=== PATIENT | male | born 1990 | race African-American/Black ===

== ENCOUNTER 2019-06-24 13:37 | Emergency (ER) | payer MEDICAID, MEDICARE, OTHER ==
[~2019-06-24] VITALS: Ht 175.3 cm; Wt 73.9 kg
--- NOTE | 2019-06-24 13:45 | NUR ---
BIB RA 62, C/O SOB,WEAKNESS, NOT IMPROVING WITH CLARITIN PRESCRIBED FROM HIM "MULTIPLE MD VISITS" pt awake alert, -sob, nad noted, vss, pending md saxena
[2019-06-24] MEDS ORDERED: ACETAMINOPHEN ES 500 MG TABLET PO ONE (14:00)
[2019-06-24] MEDS ORDERED: IV NS 0.9% 1,000 ML BAG IV ONE (14:00)
[2019-06-24 14:12] LABS: BASOPHILS % (AUTO) 1.2 % (0.0-2.0); EOSINOPHILS % (AUTO) 0.3 % (0.0-6.0); HEMATOCRIT 42 % (39-51); HEMOGLOBIN 13.9 g/dL (13.5-17.5); LYMPHOCYTES % (AUTO) 25.2 % (20.0-44.0); MEAN CORPUSCULAR HGB CONC 33 g/dl (31.0-36.0); MEAN CORPUSCULAR VOLUME 87 fL (80-96); MONOCYTES # (AUTO) 0.3 /CMM (0.1-1.30); NEUTROPHILS # (AUTO) 2.7 /CMM (1.8-8.9); NEUTROPHILS % (AUTO) 66.3 % (43.0-81.0); PLATELET COUNT (AUTO) 211 /CMM (150-450); RED BLOOD CELL COUNT(AUTO) 4.77 MIL/uL (4.5-6.0)
[2019-06-24 14:19] LABS: CALCIUM, SERUM 8.5 mg/dL (8.5-10.1); CREATININE 0.9 mg/dL (0.6-1.3)
[2019-06-24] MEDS ORDERED: ACETAMINOPHEN ES 500 MG TABLET ONE (14:23)
[2019-06-24 14:30] VITALS: BP 110/75
--- NOTE | 2019-06-24 14:46 | NUR ---
Patient given written and verbal discharge instructions. Patient verbalizes understanding of instructions. Patient is ambulatory with steady gait. Patient given list of available shelters in surrounding area.
== END 2019-06-24 14:55 | disposition home or self-care (01) ==
LOC: ER 13:38
DX: R53.1 Weakness (principal); Z59.0 Homelessness
CPT/HCPCS: 36415; 71045; 80048; 85025; 93005; 99285; J7030

== ENCOUNTER 2021-04-15 20:41 | Emergency (ER) | payer MEDICARE, OTHER ==
[~2021-04-15] VITALS: Ht 175.3 cm; Wt 74.8 kg
--- NOTE | 2021-04-15 23:30 | NUR ---
PATIENT BIBRA FROM THE STREETS C/O S/I WITH PLAN TO RUN INTO TRAFFIC, SEEKING VOLUNTARY ADMISSION TO [facility]. PATIENT IS A/O X 4, RR EVEN AND UNLABORED, NO SOB NOTED. PATIENT CONNECTED TO CARDIAC AND POX MONITOR.
[2021-04-16 01:00] VITALS: BP 124/64
[2021-04-16 01:43] LABS: BASOPHILS % (AUTO) 0.4 % (0.0-2.0); EOSINOPHILS % (AUTO) 1.3 % (0.0-6.0); HEMATOCRIT 37 % (39-51); HEMOGLOBIN 12.8 g/dL (13.5-17.5); LYMPHOCYTES # (AUTO) 2.5 K/uL (0.8-4.8); LYMPHOCYTES % (AUTO) 41.9 % (20.0-44.0); MEAN CORPUSCULAR HGB CONC 34 g/dl (31.0-36.0); MEAN CORPUSCULAR VOLUME 88 fL (80-96); MONOCYTES # (AUTO) 0.5 K/uL (0.1-1.30); MONOCYTES % (AUTO) 7.8 % (2.0-12.0); NEUTROPHILS # (AUTO) 2.9 K/uL (1.8-8.9); NEUTROPHILS % (AUTO) 48.6 % (43.0-81.0); PLATELET COUNT (AUTO) 347 K/uL (150-450); RED BLOOD CELL COUNT(AUTO) 4.24 MIL/uL (4.5-6.0)
[2021-04-16 02:07] LABS: CALCIUM, SERUM 7.8 mg/dL (8.5-10.1); CARBON DIOXIDE 32 mmol/L (21-32); CHLORIDE 105 mmol/L (98-107); GLUCOSE 103 mg/dL (74-106); POTASSIUM 3.9 mmol/L (3.5-5.1); SODIUM SERUM 144 mmol/L (136-145); UREA NITROGEN, BLOOD 10 mg/dL (7-18)
[2021-04-16 02:15] LABS: ALANINE AMINOTRANSFERASE 25 U/L (12-78); ALBUMIN 3.2 g/dL (3.4-5.0); ALKALINE PHOSPHATASE 86 U/L (46-116); BILIRUBIN,TOTAL 0.3 mg/dL (0.2-1.0)
[2021-04-16 02:18] LABS: ALCOHOL, BLOOD < 3 mg/dL (0-0)
[2021-04-16 02:59] LABS: ACETAMINOPHEN < 2 ug/ml (10-30); ASPARTATE AMINOTRANSFERASE 21 U/L (15-37); TOTAL PROTEIN, SERUM 6.3 g/dL (6.4-8.2)
--- NOTE | 2021-04-16 03:57 | NUR ---
COVID SWAB COLLECTED SENT TO LAB
[2021-04-16 04:08] LABS: BILIRUBIN,URINE NEGATIVE (NEGATIVE); COLOR,URINE YELLOW (YELLOW); LEUKOCYTE ESTERASE ,URINE SMALL (NEGATIVE); NITRITE, URINE NEGATIVE (NEGATIVE); PROTEIN,URINE NEGATIVE (NEGATIVE); UGLUCOSE NEGATIVE (NEGATIVE); UROBILINOGEN,URINE 0.2 EU/dL (0.2)
[2021-04-16 04:14] LABS: BACTERIA,URINE Few /HPF (None Seen); MUCUS,URINE Few /LPF (None Seen); RBC,URINE 0-2 /HPF (0-2); SQUAMOUS EPITHELIAL CELL,UR Few /HPF (None Seen); WBC,URINE 21-50 /HPF (0-3)
--- NOTE | 2021-04-16 09:45 | NUR ---
Pt. is accepted to [facility].
--- NOTE | 2021-04-16 11:15 | NUR ---
TRANSPORT HERE TO PICKUP PATIENT.
--- NOTE | 2021-04-16 11:20 | NUR ---
Patient discharged to [facility] in stable condition. Written and verbal after care instructions given. Patient verbalizes understanding of instruction.PT D/C TO [facility]. PT ambulatory with a steady gait. VSS. ALL BELONGINGS WITH PT.
== END 2021-04-16 11:20 ==
LOC: ER 21:20
DX: R45.851 Suicidal ideations (principal); Z20.822 Contact with and (suspected) exposure to COVID-19; Z59.01 Sheltered homelessness; Z88.0 Allergy status to penicillin; F12.90 Cannabis use, unspecified, uncomplicated
CPT/HCPCS: 36415; 80048; 80076; 80143; 80307; 80320; 81001; 85025; 87086; 87426; 99285; C9803; G0480

== ENCOUNTER 2021-04-18 03:02 | Emergency (ER) | payer MEDICARE, OTHER ==
[~2021-04-18] VITALS: Ht 175.3 cm; Wt 74.8 kg
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
--- NOTE | 2021-04-18 03:45 | NUR ---
URINE COLLECTED SENT TO LAB
[2021-04-18] MEDS ORDERED: IBUPROFEN 400 MG TABLET ONE (04:00)
[2021-04-18] MEDS ORDERED: IBUPROFEN 400 MG TABLET PO ONE (04:00)
[2021-04-18 04:43] LABS: BASOPHILS % (AUTO) 0.4 % (0.0-2.0); EOSINOPHILS % (AUTO) 1.3 % (0.0-6.0); HEMATOCRIT 40 % (39-51); HEMOGLOBIN 13.1 g/dL (13.5-17.5); LYMPHOCYTES # (AUTO) 1.9 K/uL (0.8-4.8); LYMPHOCYTES % (AUTO) 28.7 % (20.0-44.0); MEAN CORPUSCULAR HGB CONC 33 g/dl (31.0-36.0); MEAN CORPUSCULAR VOLUME 88 fL (80-96); MONOCYTES # (AUTO) 0.5 K/uL (0.1-1.30); MONOCYTES % (AUTO) 7.3 % (2.0-12.0); NEUTROPHILS # (AUTO) 4.2 K/uL (1.8-8.9); NEUTROPHILS % (AUTO) 62.3 % (43.0-81.0); PLATELET COUNT (AUTO) 304 K/uL (150-450); RED BLOOD CELL COUNT(AUTO) 4.54 MIL/uL (4.5-6.0); WHITE BLOOD COUNT (AUTO) 6.8 K/uL (4.3-11.0)
[2021-04-18 04:53] LABS: CALCIUM, SERUM 8.7 mg/dL (8.5-10.1); CARBON DIOXIDE 33 mmol/L (21-32); CHLORIDE 102 mmol/L (98-107); GLUCOSE 106 mg/dL (74-106); POTASSIUM 3.9 mmol/L (3.5-5.1); SODIUM SERUM 141 mmol/L (136-145); UREA NITROGEN, BLOOD 6 mg/dL (7-18)
--- NOTE | 2021-04-18 06:24 | NUR ---
CALLED UMA AT [facility] TO SEE IF THE PT CAN GO BACK TO [facility]. AWAITING FOR HER CALL BACK
[2021-04-18] MEDS ORDERED: IBUP-1957 PO (06:28)
--- NOTE | 2021-04-18 06:30 | NUR ---
GOT A CALL FROM [facility]. JEAN-PIERRE RODRIGUEZ ACCEPTING THE PT.
--- NOTE | 2021-04-18 06:31 | NUR ---
CALLED BENJI AT [facility] , REQUESTING RAPID COVID TEST AND THEN PT IS OK TO GO TO [facility]
--- NOTE | 2021-04-18 08:07 | NUR ---
COVID SWAB DONE AND SENT TO LAB
--- NOTE | 2021-04-18 10:26 | NUR ---
CALLED LAB TO FOLLOW UP COVID RESULT PER CLS HE IS TOO BUSY TO RUN THE TEST.
[2021-04-18] MEDS ORDERED: IBUPROFEN 600 MG TABLET ONE (11:33)
--- NOTE | 2021-04-18 11:46 | NUR ---
CALLED [facility]. ETA OF 20MINS.
[2021-04-18 12:00] VITALS: BP 120/61
[2021-04-18] MEDS ORDERED: IBUPROFEN 600 MG TABLET PO ONE (12:00)
--- NOTE | 2021-04-18 12:12 | NUR ---
REPORT GIVEN TO BEATRIZ RN AT [facility]. GOING TO UNIT II AWAITING TRANSPORT.
--- NOTE | 2021-04-18 12:21 | NUR ---
PICKED UP BY [facility] IN STABLE CONDITION
--- NOTE | 2021-04-18 12:26 | NUR ---
Patient discharged to [facility] stable condition. Written and verbal after care instructions given. Patient verbalizes understanding of instruction. DC VIA RITIKA VIA [facility] EMT
== END 2021-04-18 12:26 ==
LOC: ER 03:09
DX: I31.9 Disease of pericardium, unspecified (principal); Z20.822 Contact with and (suspected) exposure to COVID-19; R44.2 Other hallucinations; Z59.01 Sheltered homelessness; Z88.0 Allergy status to penicillin
CPT/HCPCS: 36415; 71045-TC; 80048-TC; 84484-TC; 85025-TC; C9803

== ENCOUNTER 2021-07-26 14:55 | Emergency (ER) | payer MEDICARE, OTHER ==
[~2021-07-26] VITALS: Ht 175.3 cm; Wt 82.1 kg
[2021-07-26 16:01] LABS: BASOPHILS % (AUTO) 0.8 % (0.0-2.0); EOSINOPHILS % (AUTO) 0.7 % (0.0-6.0); HEMATOCRIT 38 % (39-51); HEMOGLOBIN 12.7 g/dL (13.5-17.5); LYMPHOCYTES # (AUTO) 1.6 K/uL (0.8-4.8); LYMPHOCYTES % (AUTO) 26.6 % (20.0-44.0); MEAN CORPUSCULAR HGB CONC 33 g/dl (31.0-36.0); MEAN CORPUSCULAR VOLUME 86 fL (80-96); MONOCYTES # (AUTO) 0.5 K/uL (0.1-1.30); MONOCYTES % (AUTO) 8.5 % (2.0-12.0); NEUTROPHILS # (AUTO) 3.7 K/uL (1.8-8.9); NEUTROPHILS % (AUTO) 63.4 % (43.0-81.0); PLATELET COUNT (AUTO) 244 K/uL (150-450); RED BLOOD CELL COUNT(AUTO) 4.45 MIL/uL (4.5-6.0); WHITE BLOOD COUNT (AUTO) 5.9 K/uL (4.3-11.0)
[2021-07-26] MEDS ORDERED: IBUPROFEN 600 MG TABLET ONE (16:03)
[2021-07-26 16:19] LABS: BILIRUBIN,URINE NEGATIVE (NEGATIVE); COLOR,URINE YELLOW (YELLOW); LEUKOCYTE ESTERASE ,URINE NEGATIVE (NEGATIVE); NITRITE, URINE NEGATIVE (NEGATIVE); PROTEIN,URINE NEGATIVE (NEGATIVE); UGLUCOSE NEGATIVE (NEGATIVE); UROBILINOGEN,URINE 0.2 EU/dL (0.2)
[2021-07-26] MEDS ORDERED: IBUPROFEN 600 MG TABLET PO ONE (16:30)
[2021-07-26 16:41] LABS: RBC,URINE 0-2 /HPF (0-2)
[2021-07-26 16:42] LABS: BACTERIA,URINE None seen /HPF (None Seen); CALCIUM OXALATE CRYSTALS,UR Few /HPF (None Seen); SQUAMOUS EPITHELIAL CELL,UR None Seen /HPF (None Seen); WBC,URINE NONE SEEN /HPF (0-3)
[2021-07-26 17:17] LABS: CALCIUM, SERUM 8.6 mg/dL (8.5-10.1); CARBON DIOXIDE 28 mmol/L (21-32); CHLORIDE 104 mmol/L (98-107); CREATININE 0.9 mg/dL (0.6-1.3); GLUCOSE 82 mg/dL (74-106); POTASSIUM 3.8 mmol/L (3.5-5.1); SODIUM SERUM 139 mmol/L (136-145); UREA NITROGEN, BLOOD 9 mg/dL (7-18)
[2021-07-26 17:23] LABS: ALANINE AMINOTRANSFERASE 42 U/L (12-78); ALBUMIN 3.6 g/dL (3.4-5.0); ALCOHOL, BLOOD < 3 mg/dL (0-0); ALKALINE PHOSPHATASE 93 U/L (46-116); ASPARTATE AMINOTRANSFERASE 43 U/L (15-37); BILIRUBIN,TOTAL 0.2 mg/dL (0.2-1.0); TOTAL PROTEIN, SERUM 6.8 g/dL (6.4-8.2)
[2021-07-26 17:24] LABS: ACETAMINOPHEN < 2 ug/ml (10-30)
[2021-07-26] MEDS ORDERED: LORAZEPAM 1 MG TABLET PO ONE (18:00)
[2021-07-26] MEDS ORDERED: DIPHENHYDRAMINE HCL 12.5 MG/5 ML UDC PO ONE (18:00)
[2021-07-26] MEDS ORDERED: ACETAMINOPHEN 325 MG TABLET PO ONE (18:00)
[2021-07-26] MEDS ORDERED: LORAZEPAM 1 MG TABLET ONE (18:24)
[2021-07-26] MEDS ORDERED: diphenhydrAMINE HCL ELIX 25 MG/10 ML UDC ONE (18:24)
[2021-07-26] MEDS ORDERED: ACETAMINOPHEN 325 MG TABLET ONE (18:25)
[2021-07-27] MEDS ORDERED: diphenhydrAMINE HCL 25 MG CAPSULE ONE (05:37)
[2021-07-27] MEDS ORDERED: diphenhydrAMINE HCL ELIX 25 MG/10 ML UDC ONE (05:38)
[2021-07-27] MEDS ORDERED: DIPHENHYDRAMINE HCL 12.5 MG/5 ML UDC PO ONE (06:00)
[2021-07-27] MEDS ORDERED: ACETAMINOPHEN 325 MG TABLET ONE (11:40)
[2021-07-27] MEDS ORDERED: ACETAMINOPHEN 325 MG TABLET PO ONE (12:00)
[2021-07-27 13:05] VITALS: BP 120/62
== END 2021-07-27 13:05 | disposition home or self-care (01) ==
LOC: ER 15:02
DX: R45.851 Suicidal ideations (principal); S00.81XA Abrasion of other part of head, initial encounter; Y33.XXXA Other specified events, undetermined intent, initial encounter; Y93.89 Activity, other specified; Y92.89 Other specified places as the place of occurrence of the external cause; Z59.00 Homelessness unspecified; F12.10 Cannabis abuse, uncomplicated; Z20.822 Contact with and (suspected) exposure to COVID-19
CPT/HCPCS: 36415; 80048; 80076; 80143; 80307; 80320; 81001; 85025; 87426; 99285; A6403; Q0163 ×4; C9803; G0480

== ENCOUNTER 2021-12-04 09:36 | Emergency (ER) | payer MEDICAID, MEDICARE, OTHER ==
[~2021-12-04] VITALS: Ht 175.3 cm; Wt 94.8 kg
[2021-12-04 09:47] VITALS: BP 115/70
[2021-12-04] MEDS ORDERED: CYCLOBENZAPRINE 10 MG TABLET ONE (10:12)
[2021-12-04] MEDS ORDERED: FAMOTIDINE (20 MG) 20 MG TABLET ONE (10:12)
[2021-12-04] MEDS ORDERED: MAG HYDROX/AL HYDROX/SIMETH 30 ML UDC ONE (10:12)
[2021-12-04] MEDS ORDERED: ONDANSETRON 4 MG TAB.RAPDIS ONE (10:13)
[2021-12-04] MEDS ORDERED: FAMOTIDINE (20 MG) 20 MG TABLET PO ONE (10:30)
[2021-12-04] MEDS ORDERED: CYCLOBENZAPRINE 10 MG TABLET PO ONE (10:30)
[2021-12-04] MEDS ORDERED: ONDANSETRON 4 MG TAB.RAPDIS SL ONE (10:30)
[2021-12-04] MEDS ORDERED: MAG HYDROX/AL HYDROX/SIMETH 30 ML UDC PO ONE (10:30)
[2021-12-04] MEDS ORDERED: ONDA4TAB5 PO (10:43)
[2021-12-04] MEDS ORDERED: NAPR-1164 PO (10:43)
--- NOTE | 2021-12-04 10:51 | NUR ---
Patient discharged to home in stable condition. Written and verbal after care instructions given. Patient verbalizes understanding of instruction.
== END 2021-12-04 10:51 | disposition home or self-care (01) ==
LOC: ER 09:37
DX: M62.838 Other muscle spasm (principal); K29.70 Gastritis, unspecified, without bleeding; Z88.0 Allergy status to penicillin; Z59.00 Homelessness unspecified; Z60.2 Problems related to living alone
CPT/HCPCS: 99284; Q0162

== ENCOUNTER 2021-12-26 09:05 | Emergency (ER) | payer MEDICAID, MEDICARE, OTHER ==
[~2021-12-26] VITALS: Ht 175.3 cm; Wt 94.8 kg
[~2021-12-26 09:05] MED LIST: NAPR-1164 PO; ONDA4TAB5 PO
[2021-12-26] MEDS ORDERED: CEFTRIAXONE 1 G in IV D5W 50 ML IV ONE (10:00)
[2021-12-26] MEDS ORDERED: LIDOCAINE 1% INJ 50 ML MDV IJ ONE ×2 (10:00→11:18)
[2021-12-26] MEDS ORDERED: VANCOMYCIN 1 GM in IV D5W 250 ML IV ONE (10:00)
--- NOTE | 2021-12-26 10:20 | NUR ---
COVID SWAB DONE AND SENT TO LAB
[2021-12-26 10:23] LABS: BASOPHILS % (AUTO) 0.4 % (0.0-2.0); EOSINOPHILS % (AUTO) 0.4 % (0.0-6.0); HEMATOCRIT 41 % (39-51); HEMOGLOBIN 13.4 g/dL (13.5-17.5); LYMPHOCYTES # (AUTO) 1.3 K/uL (0.8-4.8); MEAN CORPUSCULAR HGB CONC 33 g/dl (31.0-36.0); MEAN CORPUSCULAR VOLUME 84 fL (80-96); MONOCYTES # (AUTO) 0.8 K/uL (0.1-1.30); MONOCYTES % (AUTO) 8.6 % (2.0-12.0); NEUTROPHILS # (AUTO) 7.5 K/uL (1.8-8.9); NEUTROPHILS % (AUTO) 77.6 % (43.0-81.0); PLATELET COUNT (AUTO) 346 K/uL (150-450); RED BLOOD CELL COUNT(AUTO) 4.83 MIL/uL (4.5-6.0); WHITE BLOOD COUNT (AUTO) 9.7 K/uL (4.3-11.0)
[2021-12-26 10:44] LABS: CALCIUM, SERUM 9.4 mg/dL (8.5-10.1); POTASSIUM 3.4 mmol/L (3.5-5.1)
[2021-12-26] MEDS ORDERED: ONDANSETRON HCL/PF 4 MG/2 ML VIAL IV ONE (12:30)
[2021-12-26] MEDS ORDERED: MORPHINE SULFATE INJ 2 MG/ML DISP.SYRIN IV ONE (12:30)
[2021-12-26] MEDS ORDERED: MORPHINE SULFATE INJ 4 MG/ML DISP.SYRIN ONE (12:32)
[2021-12-26] MEDS ORDERED: ONDANSETRON HCL/PF 4 MG/2 ML VIAL ONE (12:32)
--- NOTE | 2021-12-26 13:11 | NUR ---
CALLED [facility] [phone] NO HAND SPECIALIST PER CHERRY.
--- NOTE | 2021-12-26 13:57 | NUR ---
CALLED [facility] [phone] THOM. CURRENTLY AT [facility] IN ED. WILL CHECK WITH CONSTRUCTION MANAGEMENT ASSISTANT HAND SPECIALIST FOR ACCEPTANCE. FAXING FACE SHEET AND CLINICALS TO [phone]
[2021-12-26] MEDS ORDERED: LET SOLN TOPICAL 8 ML UDC TP ONE ×2 (14:00→15:49)
--- NOTE | 2021-12-26 15:42 | NUR ---
CALLED [facility] [phone] KIT. WILL TAKE INFO. FAX [phone].
--- NOTE | 2021-12-26 16:13 | NUR ---
[facility] [phone] KACEY ASKED FOR FACE SHEET TO BE FAXED TO [phone]
--- NOTE | 2021-12-26 16:47 | NUR ---
AVNI CALLED FROM [facility] CASE DECLINED SINCE IT CAN BE CONDUCTED AN OUTPATIENT TREATMENT.
--- NOTE | 2021-12-26 18:10 | NUR ---
DR BUTTERFIELD AT BEDSIDE FOR RE-EVAL
[2021-12-26] MEDS ORDERED: HYDR-4209 PO (18:27)
[2021-12-26] MEDS ORDERED: SULF1TAB48 PO (18:27)
[2021-12-26] MEDS ORDERED: CLIN300C12 PO (18:27)
[2021-12-26] MEDS ORDERED: HYDROCODONE/APAP 5/325MG TABLET PO ONE (18:30)
--- NOTE | 2021-12-26 18:44 | NUR ---
IV removed. Catheter intact and site benign. Pressure and 4x4 applied to site. No bleeding noted.Patient discharged to home in stable condition. Written and verbal after care instructions given. Patient verbalizes understanding of instruction.
[2021-12-26] MEDS ORDERED: HYDROCODONE/APAP 5/325MG TABLET ONE (18:45)
[2021-12-26 18:52] VITALS: BP 130/67
== END 2021-12-26 18:54 | disposition home or self-care (01) ==
LOC: ER 09:07
DX: S60.311A Abrasion of right thumb, initial encounter (principal); L03.011 Cellulitis of right finger; X58.XXXA Exposure to other specified factors, initial encounter; Y92.89 Other specified places as the place of occurrence of the external cause; M65.9 Synovitis and tenosynovitis, unspecified; Z59.00 Homelessness unspecified; Z88.0 Allergy status to penicillin; Z20.822 Contact with and (suspected) exposure to COVID-19; F19.10 Other psychoactive substance abuse, uncomplicated; D64.9 Anemia, unspecified
CPT/HCPCS: 26011; 99285; 87426; 73140; 85025; 80048; 87040 ×2; 83605; 36415; 96365; 96375; 96368; 93005; J3490; J2270; J0696; J3370; J2405; J7060; A6403; C9803

== ENCOUNTER 2022-01-25 19:20 | Emergency (ER) | payer MEDICAID, MEDICARE, OTHER ==
[~2022-01-25] VITALS: Ht 175.3 cm; Wt 81.6 kg
[~2022-01-25 19:20] MED LIST changes: +CLIN300C12 PO; +HYDR-4209 PO; -NAPR-1164 PO; -ONDA4TAB5 PO; +SULF1TAB48 PO
--- NOTE | 2022-01-25 20:46 | NUR ---
BIBS FOR S/I WITH PLAN TO INJECT HIMSELF. SEEKING VOLUNTARY ADMISSION TO [facility]. -HI -AUDITORY/VISUAL HALLUCINATIONS. PT AWAKE AND ALERT X4 BREATHING UNLABORED. CHANGED INTO GOWN AND WANDED BY SECURITY. SAFETY MEASURES IN PLACE.
[2022-01-25 20:48] LABS: BASOPHILS % (AUTO) 0.5 % (0.0-2.0); EOSINOPHILS % (AUTO) 1.9 % (0.0-6.0); HEMATOCRIT 37 % (39-51); HEMOGLOBIN 12.3 g/dL (13.5-17.5); LYMPHOCYTES # (AUTO) 2.4 K/uL (0.8-4.8); LYMPHOCYTES % (AUTO) 39.9 % (20.0-44.0); MEAN CORPUSCULAR HGB CONC 34 g/dl (31.0-36.0); MEAN CORPUSCULAR VOLUME 85 fL (80-96); MONOCYTES # (AUTO) 0.5 K/uL (0.1-1.30); MONOCYTES % (AUTO) 7.5 % (2.0-12.0); NEUTROPHILS % (AUTO) 50.2 % (43.0-81.0); PLATELET COUNT (AUTO) 249 K/uL (150-450); RED BLOOD CELL COUNT(AUTO) 4.32 MIL/uL (4.5-6.0)
[2022-01-25 20:54] LABS: CALCIUM, SERUM 8.6 mg/dL (8.5-10.1); POTASSIUM 3.4 mmol/L (3.5-5.1)
[2022-01-25 21:01] LABS: ALBUMIN 3.7 g/dL (3.4-5.0); BILIRUBIN,DIRECT 0.1 mg/dL (0.0-0.2); BILIRUBIN,TOTAL 0.3 mg/dL (0.2-1.0); TOTAL PROTEIN, SERUM 7.3 g/dL (6.4-8.2)
--- NOTE | 2022-01-25 21:37 | NUR ---
urine collected and sent to lab
--- NOTE | 2022-01-25 21:37 | NUR ---
covid swab done and sent to lab
--- NOTE | 2022-01-25 21:37 | NUR ---
patient belongings taken and placed in locker. (4 bags and 2 hospital bags)
[2022-01-25 22:01] LABS: BILIRUBIN,URINE NEGATIVE (NEGATIVE); COLOR,URINE YELLOW (YELLOW); LEUKOCYTE ESTERASE ,URINE NEGATIVE (NEGATIVE); NITRITE, URINE NEGATIVE (NEGATIVE); PROTEIN,URINE NEGATIVE (NEGATIVE); UGLUCOSE NEGATIVE (NEGATIVE); UROBILINOGEN,URINE 0.2 EU/dL (0.2)
--- NOTE | 2022-01-25 23:45 | NUR ---
FACESHEET AND CLINICALS FAXED TO JEAN-PIERRE VALENTIN.
--- NOTE | 2022-01-26 02:05 | NUR ---
[facility]
--- NOTE | 2022-01-26 02:18 | NUR ---
REPORT GIVEN TO BURAK AT [facility]
--- NOTE | 2022-01-26 02:23 | NUR ---
PT PICKED UP BY [facility] FOR TRANSPORT TO [facility]. PT CHART AND REPORT PROVIDED TO STONEWORKER
[2022-01-26 02:34] VITALS: BP 139/68
== END 2022-01-26 02:35 ==
LOC: ER 19:25
DX: R45.851 Suicidal ideations (principal); F12.10 Cannabis abuse, uncomplicated; Z59.01 Sheltered homelessness; Z20.822 Contact with and (suspected) exposure to COVID-19; E87.6 Hypokalemia; Z88.0 Allergy status to penicillin
CPT/HCPCS: 99285; 85025; 80048; 80076; 81003; 36415; 87426; 80143; 80320; 80307; C9803; G0480

== ENCOUNTER 2022-02-07 04:42 | Emergency (ER) | payer MEDICARE, OTHER ==
[~2022-02-07] VITALS: Ht 175.3 cm; Wt 86.2 kg
--- NOTE | 2022-02-07 06:01 | NUR ---
BIB[place]LDarwin FROM STREET C/O SI HEARING VOICES TO KILL SELF. PLAN TO RUN INTO TRAFFIC. PT A/OX4. TOLERATING R/A WELL WITH NO SOB. PT CHANGED INTO GOWN, BELONGINGS COLLCETED AND PLACED INTO LOCKER, AND WANDED BY SECURITY. SAFETY MEASURES IN PLACE.
--- NOTE | 2022-02-07 06:10 | NUR ---
COVID ANTIGEN SWAB COLLECTED AND SENT TO LAB
--- NOTE | 2022-02-07 06:20 | NUR ---
KETTLE WORKER AT PT'S BEDSIDE
--- NOTE | 2022-02-07 06:28 | NUR ---
URINE COLLECTED AND SENT TO LAB
[2022-02-07 07:13] LABS: BILIRUBIN,URINE 1+ (NEGATIVE); COLOR,URINE YELLOW (YELLOW); LEUKOCYTE ESTERASE ,URINE NEGATIVE (NEGATIVE); NITRITE, URINE NEGATIVE (NEGATIVE); PROTEIN,URINE TRACE mg/dl (NEGATIVE); UGLUCOSE NEGATIVE (NEGATIVE); UROBILINOGEN,URINE 0.2 EU/dL (0.2)
[2022-02-07 07:56] LABS: BASOPHILS % (AUTO) 0.3 % (0.0-2.0); EOSINOPHILS % (AUTO) 1.4 % (0.0-6.0); HEMATOCRIT 39 % (39-51); HEMOGLOBIN 12.9 g/dL (13.5-17.5); LYMPHOCYTES # (AUTO) 1.9 K/uL (0.8-4.8); LYMPHOCYTES % (AUTO) 25.5 % (20.0-44.0); MEAN CORPUSCULAR HGB CONC 33 g/dl (31.0-36.0); MEAN CORPUSCULAR VOLUME 85 fL (80-96); MONOCYTES # (AUTO) 0.6 K/uL (0.1-1.30); NEUTROPHILS # (AUTO) 4.8 K/uL (1.8-8.9); NEUTROPHILS % (AUTO) 64.8 % (43.0-81.0); PLATELET COUNT (AUTO) 286 K/uL (150-450); RED BLOOD CELL COUNT(AUTO) 4.59 MIL/uL (4.5-6.0); WHITE BLOOD COUNT (AUTO) 7.3 K/uL (4.3-11.0)
--- NOTE | 2022-02-07 08:51 | NUR ---
CHEMISTRY RESULT IN 15-20MINS PER LAB
[2022-02-07 08:58] LABS: CARBON DIOXIDE 30 mmol/L (21-32); CHLORIDE 102 mmol/L (98-107); CREATININE 0.9 mg/dL (0.6-1.3); GLUCOSE 106 mg/dL (74-106); POTASSIUM 3.6 mmol/L (3.5-5.1); SODIUM SERUM 140 mmol/L (136-145); UREA NITROGEN, BLOOD 12 mg/dL (7-18)
[2022-02-07 09:03] LABS: ALANINE AMINOTRANSFERASE 52 U/L (12-78); ALBUMIN 3.9 g/dL (3.4-5.0); ALCOHOL, BLOOD < 3 mg/dL (0-0); ALKALINE PHOSPHATASE 79 U/L (46-116); ASPARTATE AMINOTRANSFERASE 117 U/L (15-37); BILIRUBIN,DIRECT 0.1 mg/dL (0.0-0.2); BILIRUBIN,TOTAL 0.3 mg/dL (0.2-1.0); TOTAL PROTEIN, SERUM 7.4 g/dL (6.4-8.2)
[2022-02-07 09:04] LABS: ACETAMINOPHEN 0 ug/ml (10-30)
--- NOTE | 2022-02-07 15:26 | NUR ---
NOEL faxed clinicals to [facility] TEL:[phone] fax:[phone] for for voluntary psychiatric treatment at [facility] [[facility] [place] [address] FAX:[phone]].
[2022-02-07 16:30] VITALS: BP 140/77
--- NOTE | 2022-02-07 17:34 | NUR ---
CALL BACK FROM [facility] FOR UPDTAE ON VS
--- NOTE | 2022-02-07 18:28 | NUR ---
PT ACCEPTED AT [facility] UNDER DR. DELEON # FOR REPORT [phone] AFTER 2100
--- NOTE | 2022-02-07 19:17 | NUR ---
PT NO LONGER WISHES TO STAY IN ER. PT DENIES SI/HI.
== END 2022-02-07 20:07 | disposition home or self-care (01) ==
LOC: ER 04:42
DX: R45.851 Suicidal ideations (principal); F19.10 Other psychoactive substance abuse, uncomplicated; J45.909 Unspecified asthma, uncomplicated; Z59.00 Homelessness unspecified; Z20.822 Contact with and (suspected) exposure to COVID-19; Z88.0 Allergy status to penicillin
CPT/HCPCS: 36415; 80048-TC; 80076-TC; 85025-TC; C9803; G0480

== ENCOUNTER 2022-03-15 18:23 | Emergency (ER) | payer OTHER ==
[~2022-03-15] VITALS: Ht 175.3 cm; Wt 78.5 kg
--- NOTE | 2022-03-15 18:41 | NUR ---
dr santiago at bedside
[2022-03-15] MEDS ORDERED: IV NS 0.9% 1,000 ML BAG IV ONE (19:00)
[2022-03-15] MEDS ORDERED: ONDANSETRON HCL/PF 4 MG/2 ML VIAL IVP ONE (19:00)
[2022-03-15] MEDS ORDERED: MAG HYDROX/AL HYDROX/SIMETH 30 ML UDC PO ONE (19:30)
[2022-03-15] MEDS ORDERED: LIDOCAINE VISCOUS 2% UD 15 ML UDC MM ONE (19:30)
[2022-03-15] MEDS ORDERED: FAMOTIDINE/PF INJ 20 MG/2 ML VIAL IV ONE ×2 (19:30→19:36)
[2022-03-15] MEDS ORDERED: LIDOCAINE VISCOUS 2% UD 15 ML UDC ONE (19:35)
[2022-03-15] MEDS ORDERED: ONDANSETRON HCL/PF 4 MG/2 ML VIAL ONE (19:35)
[2022-03-15] MEDS ORDERED: MAG HYDROX/AL HYDROX/SIMETH 30 ML UDC ONE (19:35)
[2022-03-15] MEDS ORDERED: ONDA4TAB5 PO (19:53)
[2022-03-15] MEDS ORDERED: FAMO-131 PO (19:53)
[2022-03-15 19:55] LABS: CALCIUM, SERUM 8.6 mg/dL (8.5-10.1)
[2022-03-15 19:57] LABS: BASOPHILS % (AUTO) 0.4 % (0.0-2.0); EOSINOPHILS % (AUTO) 0.1 % (0.0-6.0); HEMATOCRIT 44 % (39-51); HEMOGLOBIN 14.7 g/dL (13.5-17.5); LYMPHOCYTES # (AUTO) 1.3 K/uL (0.8-4.8); LYMPHOCYTES % (AUTO) 16.2 % (20.0-44.0); MEAN CORPUSCULAR HGB CONC 33 g/dl (31.0-36.0); MEAN CORPUSCULAR VOLUME 86 fL (80-96); MONOCYTES # (AUTO) 0.4 K/uL (0.1-1.30); MONOCYTES % (AUTO) 4.7 % (2.0-12.0); NEUTROPHILS # (AUTO) 6.5 K/uL (1.8-8.9); NEUTROPHILS % (AUTO) 78.6 % (43.0-81.0); PLATELET COUNT (AUTO) 269 K/uL (150-450); RED BLOOD CELL COUNT(AUTO) 5.14 MIL/uL (4.5-6.0); WHITE BLOOD COUNT (AUTO) 8.2 K/uL (4.3-11.0)
[2022-03-15 20:01] LABS: ALBUMIN 4.1 g/dL (3.4-5.0); BILIRUBIN,DIRECT 0.1 mg/dL (0.0-0.2); BILIRUBIN,TOTAL 0.4 mg/dL (0.2-1.0); TOTAL PROTEIN, SERUM 7.8 g/dL (6.4-8.2)
[2022-03-15 20:21] LABS: ACETAMINOPHEN 0 ug/ml (10-30); ALCOHOL, BLOOD < 3 mg/dL (0-0)
[2022-03-15 21:17] LABS: BILIRUBIN,URINE NEGATIVE (NEGATIVE); COLOR,URINE YELLOW (YELLOW); LEUKOCYTE ESTERASE ,URINE NEGATIVE (NEGATIVE); NITRITE, URINE NEGATIVE (NEGATIVE); PROTEIN,URINE NEGATIVE (NEGATIVE); UGLUCOSE NEGATIVE (NEGATIVE); UROBILINOGEN,URINE 0.2 EU/dL (0.2)
--- NOTE | 2022-03-15 21:18 | NUR ---
PER LAB, URINE BEING RUN NOW
[2022-03-15 21:34] LABS: BACTERIA,URINE None seen /HPF (None Seen); RBC,URINE 0-2 /HPF (0-2); SQUAMOUS EPITHELIAL CELL,UR Rare /HPF (None Seen); WBC,URINE 0-2 /HPF (0-3)
--- NOTE | 2022-03-15 21:44 | NUR ---
Patient discharged to home in stable condition. RX Written and verbal after care instructions given. Patient verbalizes understanding of instruction.
[2022-03-15 21:58] VITALS: BP 121/75
== END 2022-03-15 23:59 | disposition home or self-care (01) ==
LOC: ER 18:23
DX: R10.13 Epigastric pain (principal); R11.2 Nausea with vomiting, unspecified; F12.10 Cannabis abuse, uncomplicated; Z20.822 Contact with and (suspected) exposure to COVID-19; Z88.0 Allergy status to penicillin; J45.909 Unspecified asthma, uncomplicated; F19.10 Other psychoactive substance abuse, uncomplicated
CPT/HCPCS: 99284; 96374; 96361; 96375; 85025; 80048; 83690; 80076; 81001; 36415; 87426; 80143; 80320; 80307; J3490; J2405; J7030; C9803; G0480

== ENCOUNTER 2022-03-18 08:44 | Emergency (ER) | payer MEDICARE, OTHER ==
[~2022-03-18] VITALS: Ht 170.2 cm; Wt 68.0 kg
[~2022-03-18 08:44] MED LIST changes: +FAMO-131 PO; +ONDA4TAB5 PO
[2022-03-18] MEDS ORDERED: OLANZAPINE 10 MG VIAL IM ONE ×2 (09:00→09:49)
--- NOTE | 2022-03-18 09:05 | NUR ---
DR DYE AT BEDSIDE FOR EVAL.
--- NOTE | 2022-03-18 09:19 | NUR ---
CRULLER MAKER MACHINE AT BEDSIDE FOR BLOOD DRAW.
[2022-03-18 09:31] LABS: BASOPHILS % (AUTO) 0.6 % (0.0-2.0); EOSINOPHILS % (AUTO) 0.4 % (0.0-6.0); HEMATOCRIT 44 % (39-51); HEMOGLOBIN 14.4 g/dL (13.5-17.5); LYMPHOCYTES # (AUTO) 1.5 K/uL (0.8-4.8); LYMPHOCYTES % (AUTO) 22.8 % (20.0-44.0); MEAN CORPUSCULAR HGB CONC 33 g/dl (31.0-36.0); MEAN CORPUSCULAR VOLUME 86 fL (80-96); MONOCYTES # (AUTO) 0.5 K/uL (0.1-1.30); MONOCYTES % (AUTO) 7.6 % (2.0-12.0); NEUTROPHILS # (AUTO) 4.5 K/uL (1.8-8.9); NEUTROPHILS % (AUTO) 68.6 % (43.0-81.0); PLATELET COUNT (AUTO) 259 K/uL (150-450); RED BLOOD CELL COUNT(AUTO) 5.09 MIL/uL (4.5-6.0); WHITE BLOOD COUNT (AUTO) 6.5 K/uL (4.3-11.0)
[2022-03-18 09:37] LABS: BILIRUBIN,URINE 1+ (NEGATIVE); COLOR,URINE YELLOW (YELLOW); LEUKOCYTE ESTERASE ,URINE NEGATIVE (NEGATIVE); NITRITE, URINE NEGATIVE (NEGATIVE); PROTEIN,URINE NEGATIVE (NEGATIVE); UGLUCOSE NEGATIVE (NEGATIVE); UROBILINOGEN,URINE 0.2 EU/dL (0.2)
[2022-03-18 09:52] LABS: ALANINE AMINOTRANSFERASE 19 U/L (12-78); ALBUMIN 4.3 g/dL (3.4-5.0); ALCOHOL, BLOOD < 3 mg/dL (0-0); ALKALINE PHOSPHATASE 78 U/L (46-116); ASPARTATE AMINOTRANSFERASE 33 U/L (15-37); BILIRUBIN,DIRECT 0.2 mg/dL (0.0-0.2); BILIRUBIN,TOTAL 0.6 mg/dL (0.2-1.0); CALCIUM, SERUM 8.9 mg/dL (8.5-10.1); CARBON DIOXIDE 31 mmol/L (21-32); CHLORIDE 100 mmol/L (98-107); GLUCOSE 128 mg/dL (74-106); POTASSIUM 3.6 mmol/L (3.5-5.1); SODIUM SERUM 137 mmol/L (136-145); TOTAL PROTEIN, SERUM 8.1 g/dL (6.4-8.2); UREA NITROGEN, BLOOD 11 mg/dL (7-18)
[2022-03-18 09:59] LABS: ACETAMINOPHEN < 10 ug/ml (10-30)
[2022-03-18 10:04] LABS: BACTERIA,URINE Few /HPF (None Seen); MUCUS,URINE Few /LPF (None Seen); RBC,URINE 0-2 /HPF (0-2); SQUAMOUS EPITHELIAL CELL,UR Few /HPF (None Seen); WBC,URINE 0-2 /HPF (0-3)
--- NOTE | 2022-03-18 10:20 | NUR ---
Cut Off Saw Operator Metal Consult utility service worker conducted interview assessment for pt. in the ED seeking placement to [facility]. Pt. is a 31 year old Black male. SW met with pt. at bedside. Pt. confirmed demographinc information. Pt. is alert and oriented x3. Pt has a Irritable mood and labile affect. Pt. met normal eye contact. Pt. was actively seeing and hearing things in the room during interview. Pt. stated that he has been having a hard time getting the help he needs in terms of hearing voices. Pt. is ambulatory. Pt stated that he is receiveing [facility]. Pt. stated his hx with substance use: "everything but heroin." pt. did not elaborate on specific substances he uses. Pt. reported that he has been dx with Bipolar Disorder. Pt. has viusal and auditory hallucinations. Pt. reported feeling "suicidal" with no plan, pt stated that he wants to hurt other people but did not have a plan or specific person he wanted to hurt. D/C plan: When asked about pt.'s plan after discharge, pt. stated he was not going home, and said "I don't know." NOEL offered pt mental health resources in which pt. declined. Pt. wants voluntary placement to [facility]. Noel discussed statments disclosed in the interview with Dr. Monk who was agreeable with findings and plan to admit to [facility]. NOEL will wait for medical clearance to fax clinicals to [facility]. -------- Counseling--Outpatient [facility] [address] [place] [address] (Specializes in in-depth psychotherapy for emotional distress: anxiety, depression, interpersonal conflicts, life transitions, childhood abuse) [facility] [address] [place] [address] (Assist with solving problem marital difficulties, separation & divorce, aging parents, & grief, chronic & terminal illness) [facility] [address] [place] [address] (Deal with loss & grief, anxiety, marital difficulties) [facility] [address] [place] [address] (Provide in-home mental services to people who are incapable of leaving their homes) [facility] [address] [place], [place] [id number] [facility] [address] [place] [address] PS[address] SERVICES [facility] Partial Hospitalization and Intensive Outpatient Program (Managed Care and Herman Only) [address] [facility] [address]; [phone] [facility] Partial Hospitalization and Outpatient Program [address] [place] [address]; [phone] [facility] [place] [address] [place], [place] [phone] [facility] Partial Hospitalization and Outpatient [place] [place], [place] ; [phone] ;[phone] [facility] [address], [place] [address] Mental Health Services [facility] [address] [place] [address] Services: Outpatient therapy for children, teens, young adults, adults, older adults, and families; Psychiatric services, medication support [place] Crisis and Hotline Telephone Numbers: 24-Hour service unless stated [place] Mental Health/Crisis Line........[phone] Suicide Prevention Center (24 Hours).......[phone] Suicide Prevention Crisis Center.......[phone] (24 Hours) Alcoholics Anonymous (24 Hours)..........[phone] National Crisis Hotlines: Alcohol and Drug Helpline - Provides referrals to local facilities where adolescents and adults can seek help. Brief intervention. A[place] Helpline National [place] for [facility]ally Ill 3-444-356130-392-BQEY National Youth Crisis Hotline [place] [facility] Provides free information on specific disorders, referral directory to mental health providers, national directory of local mental health associations (M-F, 9-5 EST) National [place] of Mental Health Information Line: Provide sinformation and literature on mental illness by disorder-for professionals and general public.
[2022-03-18 11:15] VITALS: BP 132/77
--- NOTE | 2022-03-18 11:36 | NUR ---
FAXED CLINICALS TO [facility]
--- NOTE | 2022-03-18 11:46 | NUR ---
CALLED INTAKE AWAITING ACCEPTANCE.
--- NOTE | 2022-03-18 12:36 | NUR ---
PT ACCEPTED TO [facility] UNDER DR. WOLF PENDING INSURANCE VERIFICATION. WILL CALL WHEN VERIFIED. LASHONDA PAGE
--- NOTE | 2022-03-18 13:41 | NUR ---
GUY CALLED PT WILL BE TRANSPORTED AT 1400
--- NOTE | 2022-03-18 15:10 | NUR ---
VAT TENDER BY [facility]TON SINGH. STABLE CONDITION.
== END 2022-03-18 15:11 ==
LOC: ER 08:57
DX: F23 Brief psychotic disorder (principal); R45.851 Suicidal ideations; F19.10 Other psychoactive substance abuse, uncomplicated; Z59.00 Homelessness unspecified; J45.909 Unspecified asthma, uncomplicated
CPT/HCPCS: 99285; 96372; 85025; 80048; 80076; 81001; 36415; 87426; 80143; 80320; 80307; J3490; C9803; G0480

== ENCOUNTER 2022-04-01 00:57 | Emergency (ER) | payer OTHER ==
--- NOTE | 2022-04-01 01:35 | NUR ---
CALLED TO TRIAGE NO ANSWER
--- NOTE | 2022-04-01 01:50 | NUR ---
PATIENT NOT IN WAITING ROOM
[2022-04-01] MEDS ORDERED: KETO10TA2 PO (08:56)
== END 2022-04-01 01:51 | disposition left against medical advice (07) ==
LOC: ER 00:59
DX: Z53.21 Procedure and treatment not carried out due to patient leaving prior to being seen by health care provider (principal)

== ENCOUNTER 2022-04-01 07:50 | Emergency (ER) | payer MEDICARE, OTHER ==
[~2022-04-01] VITALS: Ht 175.3 cm; Wt 80.7 kg
--- NOTE | 2022-04-01 07:50 | NUR ---
Called NO response
[2022-04-01 08:38] VITALS: BP 132/74
[2022-04-01] MEDS ORDERED: KETO10TA2 PO (08:56)
[2022-04-01] MEDS ORDERED: KETOROLAC TROMETHAMINE INJ 30 MG/ML VIAL ONE (09:02)
[2022-04-01] MEDS: KETOROLAC TROMETHAMINE INJ 30 MG/ML VIAL IM ONE (09:12)
== END 2022-04-01 10:50 | disposition home or self-care (01) ==
LOC: ER 07:59
DX: M17.11 Unilateral primary osteoarthritis, right knee (principal); M19.071 Primary osteoarthritis, right ankle and foot; J45.909 Unspecified asthma, uncomplicated; Z88.0 Allergy status to penicillin; Z60.2 Problems related to living alone; Z79.899 Other long term (current) drug therapy
CPT/HCPCS: 99284; 96372; 73610; 73564; J1885

== ENCOUNTER 2022-04-04 13:31 | Emergency (ER) | payer MEDICARE, OTHER ==
[~2022-04-04] VITALS: Ht 172.7 cm; Wt 78.5 kg
[~2022-04-04 13:31] MED LIST changes: +KETO10TA2 PO
--- NOTE | 2022-04-04 14:36 | NUR ---
MULTIPLE ED VISITS FOR THE SAME COMPLAINTS, SUICIDAL IDEATION WITH PLAN TO "SLIT WRIST". REQUESTING VOLUNTARY PSYCH ADMISSION TO [facility]. AWAITING SECURITY WANDING, BELONGINGS SECURED IN LOCKER. PT IS AAOX4, AMBULATING WITH STEADY GAIT.
--- NOTE | 2022-04-04 14:55 | NUR ---
PHLEB AT BEDSIDE FOR BLOOD DRAW
[2022-04-04] MEDS ORDERED: MAG HYDROX/AL HYDROX/SIMETH 30 ML UDC PO ONE (15:00)
[2022-04-04] MEDS ORDERED: BENZONATATE 100 MG CAPSULE PO PRN (15:00)
[2022-04-04 15:11] LABS: BASOPHILS % (AUTO) 0.4 % (0.0-2.0); EOSINOPHILS % (AUTO) 0.7 % (0.0-6.0); HEMATOCRIT 42 % (39-51); HEMOGLOBIN 13.5 g/dL (13.5-17.5); LYMPHOCYTES # (AUTO) 1.5 K/uL (0.8-4.8); LYMPHOCYTES % (AUTO) 18.7 % (20.0-44.0); MEAN CORPUSCULAR HGB CONC 33 g/dl (31.0-36.0); MEAN CORPUSCULAR VOLUME 85 fL (80-96); MONOCYTES # (AUTO) 0.4 K/uL (0.1-1.30); MONOCYTES % (AUTO) 5.4 % (2.0-12.0); NEUTROPHILS % (AUTO) 74.8 % (43.0-81.0); PLATELET COUNT (AUTO) 250 K/uL (150-450); RED BLOOD CELL COUNT(AUTO) 4.88 MIL/uL (4.5-6.0); WHITE BLOOD COUNT (AUTO) 8.1 K/uL (4.3-11.0)
[2022-04-04 15:26] LABS: CALCIUM, SERUM 8.2 mg/dL (8.5-10.1); CARBON DIOXIDE 31 mmol/L (21-32); CHLORIDE 102 mmol/L (98-107); GLUCOSE 116 mg/dL (74-106); POTASSIUM 3.5 mmol/L (3.5-5.1); SODIUM SERUM 139 mmol/L (136-145); UREA NITROGEN, BLOOD 7 mg/dL (7-18)
[2022-04-04 15:32] LABS: ALANINE AMINOTRANSFERASE 29 U/L (12-78); ALBUMIN 3.6 g/dL (3.4-5.0); ALCOHOL, BLOOD < 3 mg/dL (0-0); ALKALINE PHOSPHATASE 80 U/L (46-116); ASPARTATE AMINOTRANSFERASE 32 U/L (15-37); BILIRUBIN,DIRECT 0.1 mg/dL (0.0-0.2); BILIRUBIN,TOTAL 0.2 mg/dL (0.2-1.0)
[2022-04-04 15:38] LABS: ACETAMINOPHEN < 10 ug/ml (10-30)
[2022-04-04] MEDS ORDERED: MAG HYDROX/AL HYDROX/SIMETH 30 ML UDC ONE (16:18)
[2022-04-04 17:56] LABS: BILIRUBIN,URINE NEGATIVE (NEGATIVE); COLOR,URINE YELLOW (YELLOW); LEUKOCYTE ESTERASE ,URINE NEGATIVE (NEGATIVE); NITRITE, URINE NEGATIVE (NEGATIVE); PH,URINE 6.5 (5.0-8.0); PROTEIN,URINE NEGATIVE (NEGATIVE); UGLUCOSE NEGATIVE (NEGATIVE); UROBILINOGEN,URINE 0.2 EU/dL (0.2)
[2022-04-04 19:10] VITALS: BP 120/72
--- NOTE | 2022-04-04 19:10 | NUR ---
FACESHEET AND CLINICALS FAXED TO JEAN-PIERRE VALENTIN.
[2022-04-04 19:31] LABS: LYMPHOCYTES % (MANUAL) 23 % (16-48); MONOCYTES % (MANUAL) 5 % (0-11.0); NEUTROPHILS % (MANUAL) 72 (42-76)
--- NOTE | 2022-04-05 03:46 | NUR ---
RECEIVED CALL FROM [facility] ([facility]) [phone]. PATIENT IS ACCEPTED AT [facility] UNDER DR GEORGE. REPORT CAN BE GIVEN TO DIRECTOR OF SCIENCE BENJI
--- NOTE | 2022-04-05 03:51 | NUR ---
CALLED [facility] FOR TRANSPORTATION ETA IS 11AM
--- NOTE | 2022-04-05 03:53 | NUR ---
LEFT VM TO SHREDDER OPERATOR BENJI TO CALL US BACK FOR REPORT. WAITING FOR CALL BACK
--- NOTE | 2022-04-05 04:02 | NUR ---
REPORT GIVEN TO CERTIFIED DENTAL ASSISTANT BENJI
--- NOTE | 2022-04-05 08:27 | NUR ---
RECEIVED NEW ETA OF 0900
--- NOTE | 2022-04-05 08:37 | NUR ---
TRANSFER PACKET PREPARED
--- NOTE | 2022-04-05 09:16 | NUR ---
TRANSPORTATION AT BEDSIDE TO RADIATOR CORE TESTER PT
--- NOTE | 2022-04-05 09:19 | NUR ---
TRANSPORT AT BEDSIDE FOR PICKUP. BELONGINGS GIVEN. PT AMBULATORY WITH STEADY GAIT. VS WNL, A/OX4. DISCHARGED IN STABLE CONDITION WITHOUT DISCOMFORT.
== END 2022-04-05 09:19 ==
LOC: ER 13:42
DX: R45.851 Suicidal ideations (principal); F31.9 Bipolar disorder, unspecified; K30 Functional dyspepsia; R05.9 Cough, unspecified; Z20.822 Contact with and (suspected) exposure to COVID-19; Z88.0 Allergy status to penicillin
CPT/HCPCS: 99285; 85025; 80048; 80076; 85007; 81003; 36415; 87426; 80143; 80320; 80307; C9803; G0480

== ENCOUNTER 2022-04-11 00:28 | Emergency (ER) | payer MEDICARE, OTHER ==
[~2022-04-11] VITALS: Ht 185.4 cm; Wt 93.0 kg
--- NOTE | 2022-04-11 02:04 | NUR ---
Patient came in to the er c/o +SI "i want to cut my wrist" want's voluntary [facility]. On room air, breathing normally and unlabored. Security at bedside for wanding.
[2022-04-11 02:41] LABS: BASOPHILS % (AUTO) 0.4 % (0.0-2.0); EOSINOPHILS % (AUTO) 2.9 % (0.0-6.0); HEMATOCRIT 43 % (39-51); LYMPHOCYTES # (AUTO) 1.9 K/uL (0.8-4.8); LYMPHOCYTES % (AUTO) 27.7 % (20.0-44.0); MEAN CORPUSCULAR HGB CONC 33 g/dl (31.0-36.0); MEAN CORPUSCULAR VOLUME 85 fL (80-96); MONOCYTES # (AUTO) 0.7 K/uL (0.1-1.30); MONOCYTES % (AUTO) 10.1 % (2.0-12.0); NEUTROPHILS % (AUTO) 58.9 % (43.0-81.0); PLATELET COUNT (AUTO) 291 K/uL (150-450); RED BLOOD CELL COUNT(AUTO) 5.01 MIL/uL (4.5-6.0); WHITE BLOOD COUNT (AUTO) 6.7 K/uL (4.3-11.0)
[2022-04-11 02:54] LABS: CARBON DIOXIDE 32 mmol/L (21-32); CHLORIDE 98 mmol/L (98-107); GLUCOSE 111 mg/dL (74-106); POTASSIUM 3.5 mmol/L (3.5-5.1); SODIUM SERUM 135 mmol/L (136-145); UREA NITROGEN, BLOOD 9 mg/dL (7-18)
[2022-04-11 02:57] LABS: ALANINE AMINOTRANSFERASE 27 U/L (12-78); ALCOHOL, BLOOD < 3 mg/dL (0-0); ALKALINE PHOSPHATASE 84 U/L (46-116); ASPARTATE AMINOTRANSFERASE 31 U/L (15-37); BILIRUBIN,DIRECT 0.1 mg/dL (0.0-0.2); BILIRUBIN,TOTAL 0.4 mg/dL (0.2-1.0); TOTAL PROTEIN, SERUM 7.7 g/dL (6.4-8.2)
[2022-04-11 02:58] LABS: ACETAMINOPHEN 0 ug/ml (10-30)
[2022-04-11 04:05] LABS: BILIRUBIN,URINE NEGATIVE (NEGATIVE); COLOR,URINE YELLOW (YELLOW); LEUKOCYTE ESTERASE ,URINE NEGATIVE (NEGATIVE); NITRITE, URINE NEGATIVE (NEGATIVE); PROTEIN,URINE NEGATIVE (NEGATIVE); UGLUCOSE NEGATIVE (NEGATIVE); UROBILINOGEN,URINE 0.2 EU/dL (0.2)
--- NOTE | 2022-04-11 07:53 | NUR ---
CALL FROM GUY,ACCEPTED TO [facility] UNDER DR GARCIA,REPORT TO [phone]
--- NOTE | 2022-04-11 09:02 | NUR ---
TRANSPORT ETA 1230
--- NOTE | 2022-04-11 11:39 | NUR ---
PT. ACCEPTED AT [facility]. , REPORT TO [phone] EX; [phone]
--- NOTE | 2022-04-11 11:45 | NUR ---
Lazara wang in [facility] - 04/11/22 at 1147 by ALEXANDRA CALL [phone] TO GIVE REPORT TO ALONA WEBBER
--- NOTE | 2022-04-11 11:47 | NUR ---
CALL [phone] EXT [phone] TO GIVE REPORT TO CHARGE NURSE AKBAR
--- NOTE | 2022-04-11 11:53 | NUR ---
CALLED [facility] ETA 30MIN
--- NOTE | 2022-04-11 12:32 | NUR ---
REPORT GIVEN TO BRANDY ROBERSON. [facility] AT BEDSIDE FOR PICKUP.
--- NOTE | 2022-04-11 13:00 | NUR ---
EMT AT BEDSIDE TO PICKUP PT; ENDORSEMENT GIVEN.
--- NOTE | 2022-04-11 13:01 | NUR ---
ALL BELONGINGS RETURNED TO PT.
[2022-04-11 13:20] VITALS: BP 134/80
== END 2022-04-11 13:46 ==
LOC: ER 00:29
DX: R45.851 Suicidal ideations (principal); F31.9 Bipolar disorder, unspecified; Z59.00 Homelessness unspecified; J45.909 Unspecified asthma, uncomplicated; Z88.0 Allergy status to penicillin; F17.200 Nicotine dependence, unspecified, uncomplicated; Z81.8 Family history of other mental and behavioral disorders; S60.440A External constriction of right index finger, initial encounter; W49.04XA Ring or other jewelry causing external constriction, initial encounter; Y92.89 Other specified places as the place of occurrence of the external cause; Z20.822 Contact with and (suspected) exposure to COVID-19
CPT/HCPCS: 99285; 85025; 80048; 80076; 81003; 36415; 87426; 80143; 80320; 80307; C9803; G0480

== ENCOUNTER 2022-04-24 09:24 | Emergency (ER) | payer OTHER ==
[~2022-04-24] VITALS: Ht 177.8 cm; Wt 68.0 kg
[2022-04-24 11:25] VITALS: BP 121/74
--- NOTE | 2022-04-24 11:31 | NUR ---
DR HOLCOMB AT BEDSIDE FOR EVAL.
[2022-04-24 11:54] LABS: BASOPHILS % (AUTO) 0.3 % (0.0-2.0); EOSINOPHILS % (AUTO) 1.7 % (0.0-6.0); HEMATOCRIT 47 % (39-51); HEMOGLOBIN 15.2 g/dL (13.5-17.5); LYMPHOCYTES # (AUTO) 1.8 K/uL (0.8-4.8); LYMPHOCYTES % (AUTO) 28.9 % (20.0-44.0); MEAN CORPUSCULAR HGB CONC 33 g/dl (31.0-36.0); MEAN CORPUSCULAR VOLUME 86 fL (80-96); MONOCYTES # (AUTO) 0.5 K/uL (0.1-1.30); MONOCYTES % (AUTO) 8.2 % (2.0-12.0); NEUTROPHILS # (AUTO) 3.8 K/uL (1.8-8.9); NEUTROPHILS % (AUTO) 60.9 % (43.0-81.0); PLATELET COUNT (AUTO) 290 K/uL (150-450); RED BLOOD CELL COUNT(AUTO) 5.46 MIL/uL (4.5-6.0); WHITE BLOOD COUNT (AUTO) 6.2 K/uL (4.3-11.0)
[2022-04-24 12:07] LABS: ALANINE AMINOTRANSFERASE 28 U/L (12-78); ALBUMIN 3.8 g/dL (3.4-5.0); ALCOHOL, BLOOD < 3 mg/dL (0-0); ALKALINE PHOSPHATASE 83 U/L (46-116); ASPARTATE AMINOTRANSFERASE 30 U/L (15-37); BILIRUBIN,DIRECT 0.1 mg/dL (0.0-0.2); BILIRUBIN,TOTAL 0.6 mg/dL (0.2-1.0); CALCIUM, SERUM 9.1 mg/dL (8.5-10.1); CARBON DIOXIDE 30 mmol/L (21-32); CHLORIDE 102 mmol/L (98-107); GLUCOSE 86 mg/dL (74-106); POTASSIUM 3.7 mmol/L (3.5-5.1); SODIUM SERUM 140 mmol/L (136-145); TOTAL PROTEIN, SERUM 7.7 g/dL (6.4-8.2); UREA NITROGEN, BLOOD 6 mg/dL (7-18)
[2022-04-24 12:24] LABS: ACETAMINOPHEN 0 ug/ml (10-30)
[2022-04-24 13:00] LABS: COLOR,URINE YELLOW (YELLOW)
[2022-04-24 13:01] LABS: BILIRUBIN,URINE NEGATIVE (NEGATIVE); UGLUCOSE NEGATIVE (NEGATIVE)
[2022-04-24 13:02] LABS: LEUKOCYTE ESTERASE ,URINE NEGATIVE (NEGATIVE); NITRITE, URINE NEGATIVE (NEGATIVE); PROTEIN,URINE NEGATIVE (NEGATIVE); UROBILINOGEN,URINE 0.2 EU/dL (0.2)
--- NOTE | 2022-04-24 16:00 | NUR ---
ACCEPTED AT [facility]ER [address] [place] NUMBER FOR REPORT [phone]
--- NOTE | 2022-04-24 16:02 | NUR ---
CALLED NUMBER GIVEN, NO ANSWER, LEFT VM.
--- NOTE | 2022-04-24 17:10 | NUR ---
TRANSPORTED BY [facility] IN STABLE CONDITION.
== END 2022-04-24 17:15 ==
LOC: ER 09:30
DX: R45.851 Suicidal ideations (principal); F19.10 Other psychoactive substance abuse, uncomplicated; Z59.00 Homelessness unspecified; Z20.822 Contact with and (suspected) exposure to COVID-19; J45.909 Unspecified asthma, uncomplicated; F31.9 Bipolar disorder, unspecified; Z88.0 Allergy status to penicillin
CPT/HCPCS: 99285; 85025; 80048; 80076; 81003; 36415; 87426; 80143; 80320; 80307; C9803; G0480